=== PATIENT | male | born 1965 | race Caucasian/White ===

== ENCOUNTER 2020-02-11 17:38 | Emergency (ER) | payer BC ==
[2020-02-11] MEDS ORDERED: MORPHINE SULFATE 4 MG/ML SYRINGE IV STA (17:57)
[2020-02-11] MEDS ORDERED: SODIUM CHLORIDE 0.9% 1,000 ML IV STA (17:57)
[2020-02-11] MEDS ORDERED: ONDANSETRON 4 MG/2 ML VIAL IVP STA (17:57)
[2020-02-11] MEDS ORDERED: SODIUM CHLORIDE 0.9% 2,000 ML IV STA (17:57)
[2020-02-11] MEDS ORDERED: KETOROLAC 30 MG/ML 1 ML VIAL IVP STA (17:57)
--- NOTE | 2020-02-11 18:01 | ED ---
Abdominal Pain HPI - General Chief Complaint: Abdominal Pain Stated Complaint: poss kidney stones Time Seen by Provider: 02/11/20 17:44 Source: patient, RN notes reviewed, old records reviewed Mode of arrival: ambulatory Limitations: no limitations - History of Present Illness Initial Comments: This patient's a 54-year-old male who presents emergency Department today with onset of right-sided flank pain and right testicular pain. Symptoms starting at 9 AM. Patient reports that shooting waves of pain from his right flank to his testicle. Patient reports that the pain out of 10 at this time. He reports he's had kidney stones 20 years ago. Patient states he's had no other complaints. He has taking Motrin. - Related Data Home Medications Medication Instructions Recorded Confirmed Ibuprofen [Motrin Ib] 800 mg PO Q6H PRN 02/11/20 02/11/20 Previous Rx's Medication Instructions Recorded HYDROcodone/APAP 10-325MG [[place] 1 tab PO Q6H PRN #12 tab 02/11/20 10-325] Ketorolac [Toradol] 10 mg PO Q6HR #12 tab 02/11/20 Ondansetron Odt [Zofran Odt] 4 mg PO Q8HR PRN #15 tab 02/11/20 Tamsulosin [Flomax] 0.4 mg PO DAILY #7 cap 02/11/20 Allergies Allergy/AdvReac Type Severity Reaction Status Date / Time amoxicillin Allergy Anaphylaxis Verified 02/11/20 18:55 naproxen Allergy Rash/Hives Verified 02/11/20 18:55 Review of Systems ROS Statement: Those systems with pertinent positive or pertinent negative responses have been documented in the HPI. ROS Other: All systems not noted in ROS Statement are negative. Past Medical History Past Medical History: No Reported History History of Any Multi-Drug Resistant Organisms: None Reported Past Surgical History: No Surgical Hx Reported Smoking Status: Former smoker Past Alcohol Use History: None Reported Past Drug Use History: None Reported General Exam Limitations: no limitations General appearance: alert, in no apparent distress Head exam: Present: atraumatic, normocephalic, normal inspection Eye exam: Present: normal appearance, PERRL, EOMI. Absent: scleral icterus, conjunctival injection, periorbital swelling ENT exam: Present: normal exam, mucous membranes moist Neck exam: Present: normal inspection. Absent: tenderness, meningismus, lymphadenopathy Respiratory exam: Present: normal lung sounds bilaterally. Absent: respiratory distress, wheezes, rales, rhonchi, stridor Cardiovascular Exam: Present: regular rate, normal rhythm, normal heart sounds. Absent: systolic murmur, diastolic murmur, rubs, gallop, clicks GI/Abdominal exam: Present: soft, normal bowel sounds. Absent: distended, te nderness, guarding, rebound, rigid Extremities exam: Present: normal inspection, full ROM, normal capillary refill. Absent: tenderness, pedal edema, joint swelling, calf tenderness Back exam: Present: normal inspection Neurological exam: Present: alert, oriented X3, CN II-XII intact Psychiatric exam: Present: normal affect, normal mood Skin exam: Present: warm, dry, intact, normal color. Absent: rash Course Vital Signs 02/11/20 17:38 Temperature 98.4 F Pulse Rate 102 H Respiratory 18 Rate Blood Pressure 157/90 O2 Sat by Pulse 99 Oximetry Medical Decision Making - Medical Decision Making Patient is a 54-year-old male who presents emergency department today for right- sided flank pain starting at 9 AM. He reports oligouria patient's labwork was reviewed. He does have evidence of hematuria. CT abdomen and pelvis was completed. Evidence of a 5 mm UVJ stone. informed that he has multiple renal colliculi. At this time Patient was given IV pain medication Dilaudid and Zofran and Flomax. I advised Patient that the stone should pass without any surgical intervention based off of size however he can follow up with urology. Patient will be discharged at this time with pain medication nausea medicine. Discussed appropriate follow-up with PCP as well. - Lab Data Result diagrams: 02/11/20 18:14 02/11/20 18:14 Lab Results 02/11/20 02/11/20 02/11/20 Range/Units 18:14 18:14 18:14 WBC 13.4 H (3.8-10.6) k/uL RBC 4.73 (4.30-5.90) m/uL Hgb 15.0 (13.0-17.5) gm/dL Hct 43.7 (39.0-53.0) % MCV 92.4 (80.0-100.0) fL MCH 31.8 (25.0-35.0) pg MCHC 34.4 (31.0-37.0) g/dL RDW 12.3 (11.5-15.5) % Plt Count 324 (150-450) k/uL Neutrophils % 88 % Lymphocytes % 8 % Monocytes % 3 % Eosinophils % 0 % Basophils % 0 % Neutrophils # 11.8 H (1.3-7.7) k/uL Lymphocytes # 1.0 (1.0-4.8) k/uL Monocytes # 0.4 (0-1.0) k/uL Eosinophils # 0.1 (0-0.7) k/uL Basophils # 0.0 (0-0.2) k/uL PT 10.3 (9.0-12.0) sec INR 1.0 (<1.2) APTT 21.8 L (22.0-30.0) sec Sodium (137-145) mmol/L Potassium (3.5-5.1) mmol/L Chloride (98-107) mmol/L Carbon Dioxide (22-30) mmol/L Anion Gap mmol/L BUN (9-20) mg/dL Creatinine (0.66-1.25) mg/dL Est GFR (CKD-EPI)AfAm (>60 ml/min/1.73 sqM) Est GFR (CKD-EPI)NonAf (>60 ml/min/1.73 sqM) Glucose (74-99) mg/dL Calcium (8.4-10.2) mg/dL Total Bilirubin (0.2-1.3) mg/dL AST (17-59) U/L ALT (4-49) U/L Alkaline Phosphatase (38-126) U/L Total Protein (6.3-8.2) g/dL Albumin (3.5-5.0) g/dL Amylase (30-110) U/L Lipase (23-300) U/L Urine Color Yellow Urine Appearance Clear (Clear) Urine pH 6.5 (5.0-8.0) Ur Specific [place] 1.022 (1.001-1.035) Urine Protein Trace H (Negative) Urine Glucose (UA) Negative (Negative) Urine Ketones Negative (Negative) Urine Blood Large H (Negative) Urine Nitrite Negative (Negative) Urine Bilirubin Negative (Negative) Urine Urobilinogen <2.0 (<2.0) mg/dL Ur Leukocyte Esterase Negative (Negative) Urine RBC 161 H (0-5) /hpf Urine WBC 1 (0-5) /hpf 02/11/20 Range/Units 18:14 WBC (3.8-10.6) k/uL RBC (4.30-5.90) m/uL Hgb (13.0-17.5) gm/dL Hct (39.0-53.0) % MCV (80.0-100.0) fL MCH (25.0-35.0) pg MCHC (31.0-37.0) g/dL RDW (11.5-15.5) % Plt Count (150-450) k/uL Neutrophils % % Lymphocytes % % Monocytes % % Eosinophils % % Basophils % % Neutrophils # (1.3-7.7) k/uL Lymphocytes # (1.0-4.8) k/uL Monocytes # (0-1.0) k/uL Eosinophils # (0-0.7) k/uL Basophils # (0-0.2) k/uL PT (9.0-12.0) sec INR (<1.2) APTT (22.0-30.0) sec Sodium 133 L (137-145) mmol/L Potassium 5.5 H (3.5-5.1) mmol/L Chloride 101 (98-107) mmol/L Carbon Dioxide 22 (22-30) mmol/L Anion Gap 10 mmol/L BUN 19 (9-20) mg/dL Creatinine 1.20 (0.66-1.25) mg/dL Est GFR (CKD-EPI)AfAm 80 (>60 ml/min/1.73 sqM) Est GFR (CKD-EPI)NonAf 69 (>60 ml/min/1.73 sqM) Glucose 129 H (74-99) mg/dL Calcium 9.2 (8.4-10.2) mg/dL Total Bilirubin 0.8 (0.2-1.3) mg/dL AST 32 (17-59) U/L ALT 27 (4-49) U/L Alkaline Phosphatase 49 (38-126) U/L Total Protein 7.5 (6.3-8.2) g/dL Albumin 4.6 (3.5-5.0) g/dL Amylase 59 (30-110) U/L Lipase 83 (23-300) U/L Urine Color Urine Appearance (Clear) Urine pH (5.0-8.0) Ur Specific [place] (1.001-1.035) Urine Protein (Negative) Urine Glucose (UA) (Negative) Urine Ketones (Negative) Urine Blood (Negative) Urine Nitrite (Negative) Urine Bilirubin (Negative) Urine Urobilinogen (<2.0) mg/dL Ur Leukocyte Esterase (Negative) Urine RBC (0-5) /hpf Urine WBC (0-5) /hpf - Radiology Data Radiology results: report reviewed Obstructing calculus at the right UPJ with hydronephrosis. Multiple bilateral renal colliculi. Normal appendix. Disposition Clinical Impression: Right ureteral stone, Bilateral renal stones Disposition: HOME SELF-CARE Condition: Poor Instructions (If sedation given, give patient instructions): Ureteral Stones (ED) Additional Instructions: Patient advised to rest, increase fluid intake. Follow-up with primary care doctor and can also up with urology. Return to the emergency department if any alarming signs or symptoms occur. Prescriptions: Tamsulosin [Flomax] 0.4 mg PO DAILY #7 cap HYDROcodone/APAP 10-325MG [[place] 10-325] 1 tab PO Q6H PRN #12 tab PRN Reason: Pain Ketorolac [Toradol] 10 mg PO Q6HR #12 tab Ondansetron Odt [Zofran Odt] 4 mg PO Q8HR PRN #15 tab PRN Reason: Nausea Is patient prescribed a controlled substance at d/c from ED?: Yes If prescribed controlled substance>3 days was MAPS reviewed?: Prescribed <3 Days If opioid is for acute pain is fill amount 7 days or less?: Yes If Rx opioid, was Start Talking consent form obtained?: Yes Referrals: Scott Bacon MD [Primary Care Provider] - 1-2 days Silverio Izquierdo MD [STAFF PHYSICIAN] - 1-2 days Time of Disposition: 20:20
[2020-02-11 18:35] LABS: Albumin 4.6 g/dL (3.5-5.0); Calcium 9.2 mg/dL (8.4-10.2); Total Bilirubin 0.8 mg/dL (0.2-1.3); Total Protein 7.5 g/dL (6.3-8.2)
[2020-02-11 18:37] LABS: Basophils % (A) 0 %; Eosinophils # (A) 0.1 k/uL (0-0.7); Eosinophils % (A) 0 %; HCT 43.7 % (39.0-53.0); Lymphocytes % (A) 8 %; MCH 31.8 pg (25.0-35.0); MCHC 34.4 g/dL (31.0-37.0); MCV 92.4 fL (80.0-100.0); Mean Platelet Volume 7.5; Monocytes # (A) 0.4 k/uL (0-1.0); Monocytes % (A) 3 %; Neutrophils # (A) 11.8 k/uL (1.3-7.7); Neutrophils % (A) 88 %; Platelet Count 324 k/uL (150-450); RBC 4.73 m/uL (4.30-5.90); RDW 12.3 % (11.5-15.5); WBC 13.4 k/uL (3.8-10.6)
[2020-02-11 18:43] LABS: Potassium 5.5 mmol/L (3.5-5.1)
[2020-02-11 18:57] LABS: Appearance,Urine Clear (Clear); Bilirubin,Urine Negative (Negative); Blood,Urine Large (Negative); Color,Urine Yellow; Glucose,Urine (UA) Negative (Negative); Ketones,Urine Negative (Negative); Leukocyte Esterase,Urine Negative (Negative); Nitrite,Urine Negative (Negative); PH, Urine 6.5 (5.0-8.0); Protein,Urine Trace (Negative); RBC,Urine 161 /hpf (0-5); Specific Gravity,Urine 1.022 (1.001-1.035); Urobilinogen,Urine <2.0 mg/dL (<2.0); WBC,Urine 1 /hpf (0-5)
[2020-02-11 19:06] LABS: Partial Thromboplastin Time 21.8 sec (22.0-30.0); Prothrombin Time 10.3 sec (9.0-12.0)
--- NOTE | 2020-02-11 19:21 | CT ---
EXAMINATION TYPE: CT abdomen pelvis wo con DATE OF EXAM: 02/11/2020 COMPARISON: None HISTORY: Right flank pain, hematuria. CT DLP: 905.1 mGycm Automated exposure control for dose reduction was used. Exam was performed from the diaphragm to the floor the pelvis with no contrast. Lung bases are clear of consolidation. There is no pleural effusion. Heart size is normal. There is n o pericardial effusion. Liver spleen pancreas gallbladder appear normal. Bile ducts are not dilated. There is no adrenal mass. Stomach appears normal. Kidneys have normal size and contour. There is bilateral multiple renal calculi that measure up to 4 mm. There is right-sided hydronephrosi s and 5 mm calculus at the right ureteropelvic junction. There is no retroperitoneal adenopathy. Bladder distends smoothly. There is no inguinal hernia. There is no free fluid in the pelvis. Appendi x appears normal and is posterior. There is no mesenteric edema. There is no ascites or free air. The re is no evidence of a bowel obstruction. Lumbar vertebra have fairly normal spacing and alignment. P osterior elements are intact. There is no compression fracture. The bony pelvis is intact. IMPRESSION: Obstructing calculus at the right ureteropelvic junction with hydronephrosis. Multiple bilateral christen l calculi. Normal appendix.
[2020-02-11] MEDS ORDERED: TAMSULOSIN 0.4 MG CAP.ER.24H PO STA (19:31)
[2020-02-11] MEDS ORDERED: HYDROmorphone 1 MG/ML 1 ML SYRINGE IVP STA (19:31)
[2020-02-11] MEDS ORDERED: ONDANSETRON 4 MG ODT STARTER PACK 2 TAB BTL PO STA (20:33)
[2020-02-11] MEDS ORDERED: ACET/COD 300 MG/30 MG STARTER PACK 6 TAB BTL PO STA (20:33)
[2020-02-11 20:46] VITALS: BP 110/62; PULSE 83; RESP 19; TEMP 98.9
== END 2020-02-11 21:10 | disposition home or self-care (01) ==
LOC: EC 17:38
DX: N20.2 Calculus of kidney with calculus of ureter (principal); N50.811 Right testicular pain; Z88.0 Allergy status to penicillin; Z88.6 Allergy status to analgesic agent; Z87.891 Personal history of nicotine dependence
CPT/HCPCS: 36415; 80053; 82150; 83690; 85025; 85610; 85730; 81001; 74176; 99285; 96374; 96375 ×3; 96361 ×3; J2270; J2405; J1885; J1170; S0119

== ENCOUNTER → 2020-02-20 | Outpatient (CLI) | payer BC ==
--- NOTE | 2020-02-20 11:26 | XR ---
EXAMINATION TYPE: XR KUB DATE OF EXAM: 02/20/2020 COMPARISON: CT 02/11/2020 HISTORY: Right renal calculus TECHNIQUE: One view abdominal series FINDINGS: The osseous structures are intact. The bowel gas pattern is nonspecific. 3 mm calcification is seen in the right hemipelvis. Hypertrophic changes along the inferior margin of the SI joints. No sizable calcification seen in the upper quadrants of the abdomen. IMPRESSION: 1. There is a 3 mm calcification right hemipelvis could be related to distal right ureteral calculus. No other calcifications are seen by standard x-ray.
--- NOTE | 2020-02-21 08:08 | P.GSHP ---
History of Present Illness H&P Date: 02/21/20 54 yo male with a 10 day history of persistent right ureteral colic due to a 5-6 mm proximal ureteral stone. The patient has been using narcotics regularly since then and continues to have pain, A kub yesterday shows the stone is still in the upper ureter obscuted by the L3 transverse process. He has been given treament options and comes for a cysto right ureteroscopy and laser lithotripsy. He had one stone 20 years ago He is otherwise healthy - Constitutional Constitutional: Denies chills, Denies fever - EENT Eyes: denies blurred vision, denies pain Ears, nose, mouth and throat: Denies headache, Denies sore throat - Cardiovascular Cardiovascular: Denies chest pain, Denies shortness of breath - Respiratory Respiratory: Denies cough, Denies 7 - Gastrointestinal Gastrointestinal: Denies abdominal pain, Denies diarrhea, Denies nausea, Denies vomiting - Genitourinary (Female) Genitourinary: Denies dysuria, Denies hematuria - Genitourinary (Male) Genitourinary: Denies dysuria, Denies hematuria - Musculoskeletal Musculoskeletal: Denies myalgias - Integumentary Integumentary: Denies pruritus, Denies rash - Neurological Neurological: Denies numbness, Denies weakness - Psychiatric Psychiatric: Denies anxiety, Denies depression - Endocrine Endocrine: Denies fatigue, Denies weight change Past Medical History Past Medical History: No Reported History History of Any Multi-Drug Resistant Organisms: None Reported Past Surgical History: No Surgical Hx Reported Smoking Status: Former smoker Past Alcohol Use History: None Reported Past Drug Use History: None Reported Medications and Allergies Home Medications Medication Instructions Recorded Confirmed Type HYDROcodone/APAP 10-325MG [[place] 1 tab PO Q6H PRN #12 tab 02/11/20 Rx 10-325] Ibuprofen [Motrin Ib] 800 mg PO Q6H PRN 02/11/20 02/11/20 History Ketorolac [Toradol] 10 mg PO Q6HR #12 tab 02/11/20 Rx Ondansetron Odt [Zofran Odt] 4 mg PO Q8HR PRN #15 tab 02/11/20 Rx Tamsulosin [Flomax] 0.4 mg PO DAILY #7 cap 02/11/20 Rx Allergies Allergy/AdvReac Type Severity Reaction Status Date / Time amoxicillin Allergy Anaphylaxis Verified 02/11/20 18:55 naproxen Allergy Rash/Hives Verified 02/11/20 18:55 Surgical - Exam - General well developed, well nourished, moderate distress - Eyes PERRL - ENT no hearing loss - Neck trachea midline - Respiratory normal expansion, normal respiratory effort - Cardiovascular Rhythm: regular - Abdomen right flank and ruq tender to palpation Abdomen: tender - Genitourinary normal penis with no external lesions, testicles present - Rectum Rectum: no tenderness - Integumentary no rash, no growths - Neurologic normal coordination - Musculoskeletal normal gait, normal posture - Psychiatric oriented to time, oriented to person, oriented to place, speech is normal, memory intact Results - Imaging Abdominal x-ray: report reviewed, image reviewed CT scan - abdomen: report reviewed, image reviewed CT scan - pelvis: report reviewed, image reviewed Assessment and Plan Assessment: Impression: Right ureteral calculous Plan: Cysto with right retrograde, right ureterosocpy and laser lithotripsy, possible stent
== END | disposition home or self-care (01) ==
LOC: RADXRMAIN 10:59
PROVIDERS: ATTEND Urology
DX: R93.41 Abnormal radiologic findings on diagnostic imaging of renal pelvis, ureter, or bladder (principal)
CPT/HCPCS: 74018

== ENCOUNTER 2020-02-22 09:05 | Day surgery (SDC) | payer BC ==
[2020-02-21 10:17] VITALS: BMI 29.8
[~2020-02-22 09:05] MED LIST: CLINDAMYCIN 900 MG in DEXTROSE 5% IN WATER 50 ML IVPB ONE
[2020-02-22] MEDS ORDERED: ONDANSETRON 4 MG/2 ML VIAL IVP ONE (09:09)
[2020-02-22] MEDS ORDERED: MIDAZOLAM 2 MG/2 ML VIAL IV PRN (09:09)
[2020-02-22] MEDS ORDERED: HYDROmorphone 0.5 MG/0.5 ML SYRINGE IVP PRN (09:09)
[2020-02-22] MEDS ORDERED: LACTATED RINGERS 1,000 ML IV SCH (09:09)
[2020-02-22] MEDS ORDERED: DEXAMETHASONE SOD PHOSPHATE 10 MG/ML 1 ML VIAL IV ONE (09:09)
--- NOTE | 2020-02-22 09:44 | XR ---
EXAMINATION TYPE: XR KUB DATE OF EXAM: 02/22/2020 HISTORY: Pain Comparison: None.Single KUB is submitted for interpretation. Findings: Right renal calculi: None Visualized. Right ureteral calculi: 3 mm distal right ureteral calculus unchanged in position. Left renal calculi: None Visualized. Left ureteral calculi: None Visualized. Pelvic calcifications: None Visualized. Bowel gas pattern is unremarkable. No free air. No mass effects. IMPRESSION: 1. 3 mm distal right ureteral calculus unchanged in position.
[2020-02-22] MEDS ORDERED: fentaNYL (PF) 50 MCG/ML 2 ML AMP ONE (10:32)
[2020-02-22] MEDS ORDERED: GLYCOPYRROLATE 0.2 MG/ML 2 ML VIAL ONE (10:32)
[2020-02-22] MEDS ORDERED: NEOSTIGMINE 1 MG/ML 10 ML VIAL ONE (10:32)
[2020-02-22] MEDS ORDERED: .MORPHINE SULFATE (INJ) 10 MG/ML SYRINGE ONE (10:32)
[2020-02-22] MEDS ORDERED: ROCURONIUM BROMIDE 10 MG/ML 5 ML VIAL IV ONE (10:32)
[2020-02-22] MEDS ORDERED: PROPOFOL 10 MG/ML 20 ML VIAL IV ONE (10:32)
[2020-02-22] MEDS ORDERED: MIDAZOLAM 2 MG/2 ML VIAL ONE (10:32)
[2020-02-22] MEDS ORDERED: IOPAMIDOL-370 50ML BTL MISCELLANE ONE (10:48)
--- NOTE | 2020-02-22 11:24 | P.OP ---
Date of Procedure: 02/22/20 Preoperative Diagnosis: Right ureteral calculus Postoperative Diagnosis: Same Procedure(s) Performed: Cystoscopy, right retrograde pyelogram, right ureteral dilation, right ureteroscopy stone basketing, placement of 626 stent Anesthesia: CHRISTINE Surgeon: Silverio Izquierdo Estimated Blood Loss (ml): 0 Pathology: other (Stone) Condition: stable Disposition: PACU Indications for Procedure: The patient is 54. For the last 2 weeks he has been attempting to pass a right ureteral stone. It is causing persistent colic. He is taking narcotics and would like to get off them. He has a 5 mm stone in the proximal ureter. He comes for stone manipulation alternatives have been discussed Description of Procedure: The patient is brought to the operating suite. He is given a general endotracheal anesthesia. He's placed lithotomy position with a sterile prep and drape. Fluoroscopy identifies the calcification probably in the distal ureter today. Cystoscopy of the Foroblique lens and 22-[place] sheath identifies a normal urethra. The prostate is not obstructing. The bladder is intubated. The ureteral orifices and bladder mucosa unremarkable. Within a cone-tipped catheter retrograde pyelograms performed and the stone is indeed in the distal ureter outside the ureterovesical junction. I attempted dilate the ureter with a cone-tipped catheter but am unable to do so. I passed a 7-[place] miniscope and there is indeed narrowing of the ureteral vesicle junction. I thus passed an 035 wire up into the kidney. Over the wire is then passed a 5-15-[place] dilating balloon. The ureter is dilated. There is indeed a waist at the UV junction that was eventually broken. I then removed the dilating balloon and passed a 7-[place] mini ureteroscope up to the stone. With a 2-[place] stone basket the stone is grasped and removed. The wires and backloaded onto the cystoscope and over the wires passed a 6 x 26 double-J catheter that will remain one week. The patient is awakened and returned recovery room good condition. Blood loss is minimal. The patient tolerated procedure well and will be discharged home upon recovery.
[2020-02-22 11:34] VITALS: TEMP 97.1
--- NOTE | 2020-02-22 11:40 | FL ---
Fluoroscopy History: rt ureteral stone removed/stent placed rt ureteral stone removed/stent placed . 1 pic on syn. 41 sec fl time
[2020-02-22 12:29] VITALS: RESP 16
[2020-02-22 12:53] VITALS: BP 136/89; PULSE 81
== END 2020-02-22 13:10 | disposition home or self-care (01) ==
LOC: OR 09:05
PROVIDERS: ATTEND Urology
DX: N20.1 Calculus of ureter (principal); Z88.0 Allergy status to penicillin; Z88.6 Allergy status to analgesic agent; Z87.891 Personal history of nicotine dependence
CPT/HCPCS: 84132; 82365; 74018; 52352; 52332; C2625; C1769; J2250; J1100; J2710; J2270; J2405; J3010; J2704; Q9967